=== PATIENT | female | born 1980 | race Caucasian/White ===

== ENCOUNTER → 2020-12-17 | Outpatient (CLI) | payer SELFPAY ==
[~2020-12-17] MED LIST: AMOCLA875 PO; AMOX500 PO; BCP'S; BUPR150T2; CIPR500 PO; CRUTCH4 USE; CYCL10 PO; FLUO20; GUAI600T33 PO; HYDACE5 PO; HYDGUAL120 PO; HYDPAM50 PO; IBUP800; IBUP800 PO; LORA1 PO; META800; METR70GEL VAG; MULVITMINE; NAPR500 PO; NAPR550 PO; OXYACE5T PO; PENVK500 PO; PHENA200 PO; PROACE100 PO; RXCYCL10 PO; RXHYDACE PO; RXIBUP800 PO; RXNAPNA550 PO; RXPROACE PO; SUBOXONE 8 MG-1 EACH SL; TYLENOL AND MOTRIN; YASMIN; Zofran Odt4 MG SL; [UNRECOGNIZED DRUG - REMARK]
== END | disposition home or self-care (01) ==
LOC: LAB 12:45 → LAB SHORT 12:45
DX: J02.9 Acute pharyngitis, unspecified (principal); J06.9 Acute upper respiratory infection, unspecified
CPT/HCPCS: 87081

== ENCOUNTER 2023-11-27 19:29 | Emergency (ER) | payer SELFPAY ==
[~2023-11-27] VITALS: Ht 170.2 cm; Wt 63.5 kg
[2023-11-27 19:31] VITALS: BP 141/96
[2023-11-27] MEDS ORDERED: CEPH500 PO (19:39)
== END 2023-11-27 19:40 | disposition home or self-care (01) ==
LOC: ER 19:29
DX: L03.113 Cellulitis of right upper limb (principal); Z88.5 Allergy status to narcotic agent; Z79.899 Other long term (current) drug therapy; I10 Essential (primary) hypertension; F17.210 Nicotine dependence, cigarettes, uncomplicated
CPT/HCPCS: 99283; A9270

== ENCOUNTER 2025-03-18 16:12 | Emergency (ER) | payer OTHER ==
[~2025-03-18] VITALS: Ht 170.2 cm; Wt 68.0 kg
[~2025-03-18 16:12] MED LIST changes: +CEPH500 PO
[2025-03-18 16:44] VITALS: BP 153/107
[2025-03-18] MEDS ORDERED: Ketorolac Tromethamine 30mg Vial IM ONE (18:10)
[2025-03-18] MEDS ORDERED: Amoxicillin/Clavulanate K 875 MG Tab PO ONE (18:15)
[2025-03-18] MEDS ORDERED: AMOCLA875 PO ×2 (18:16→18:28)
[2025-03-18] MEDS ORDERED: OxyCODONE HCL 5 MG TAB PO ONE (18:30)
== END 2025-03-18 18:45 | disposition home or self-care (01) ==
LOC: ER 16:12
DX: K08.89 Other specified disorders of teeth and supporting structures (principal); Z88.5 Allergy status to narcotic agent; Z79.2 Long term (current) use of antibiotics; I10 Essential (primary) hypertension; F17.200 Nicotine dependence, unspecified, uncomplicated
CPT/HCPCS: 96372; 99282-25; A9270; J1885

== ENCOUNTER 2025-09-10 10:35 | Emergency (ER) | payer OTHER ==
[~2025-09-10] VITALS: Ht 170.2 cm; Wt 69.0 kg
[2025-09-10 10:46] VITALS: BP 140/87
[2025-09-10] MEDS ORDERED: Buprenorphine HCL/Naloxone HCL 2-0.5MG 1 EA SL ONE (10:50)
[2025-09-10] MEDS ORDERED: Buprenorphine HCL/Naloxone HCL 8MG-2MG Tab SL ONE (11:20)
== END 2025-09-10 11:29 | disposition home or self-care (01) ==
LOC: ER 10:35
DX: F11.90 Opioid use, unspecified, uncomplicated (principal); I10 Essential (primary) hypertension; Z51.81 Encounter for therapeutic drug level monitoring; F17.210 Nicotine dependence, cigarettes, uncomplicated; Z88.5 Allergy status to narcotic agent; Z79.2 Long term (current) use of antibiotics; Z79.899 Other long term (current) drug therapy
CPT/HCPCS: 99281; A9270